=== PATIENT | male | born 1995 | race Caucasian/White ===

== ENCOUNTER 2019-06-23 22:47 | Emergency (ER) | payer OTHER ==
[~2019-06-23] VITALS: Ht 193 cm; Wt 111.4 kg
[2019-06-24 00:50] VITALS: BP 118/75
== END 2019-06-24 01:01 | disposition home or self-care (01) ==
LOC: EMS 22:52
DX: S93.402A Sprain of unspecified ligament of left ankle, initial encounter (principal); X50.9XXA Other and unspecified overexertion or strenuous movements or postures, initial encounter; Y93.02 Activity, running; Y92.89 Other specified places as the place of occurrence of the external cause; Y99.8 Other external cause status